=== PATIENT | male | born 2000 | race Caucasian/White ===

== ENCOUNTER 2019-12-26 05:19 | Emergency (ER) | payer OTHER, SELFPAY | END 2019-12-26 06:55 | disposition home or self-care (01) | LOC: ERS 05:19 | DX: G40.909 Epilepsy, unspecified, not intractable, without status epilepticus (principal); F10.129 Alcohol abuse with intoxication, unspecified; F41.9 Anxiety disorder, unspecified; Y90.6 Blood alcohol level of 120-199 mg/100 ml | CPT/HCPCS: 36415; 80307 ==